=== PATIENT | female | born 1975 | race Hispanic/Latino ===

== ENCOUNTER 2017-12-02 10:58 | Emergency (ER) | payer MEDICAID, OTHER | END 2017-12-02 12:05 | disposition home or self-care (01) | LOC: EDH 10:58 | DX: H00.011 Hordeolum externum right upper eyelid (principal); Z98.51 Tubal ligation status; Z72.0 Tobacco use | CPT/HCPCS: 99281 ==

== ENCOUNTER 2018-02-25 18:22 | Emergency (ER) | payer MEDICAID, OTHER ==
[2018-02-25 20:22] LABS: BASOPHILS % (AUTO) 0.8 % (0.0-5.0); HEMATOCRIT 36.8 % (36-48); LYMPHOCYTES % (AUTO) 31.8 % (21.0-51.0); MEAN CORPUSCULAR HEMOGLOBIN 31.3 pg (27.0-33.0); MEAN CORPUSCULAR HGB CONC 35.2 g/dL (32.0-36.0); MEAN CORPUSCULAR VOLUME 88.9 fL (79-99); MONOCYTES % (AUTO) 7.3 % (3.0-13.0); NEUTROPHILS % (AUTO) 56.1 % (40.0-77.0); NUCLEATED RED BLOOD CELLS 0.1 % (0.0-0.19); PLATELET COUNT (AUTO) 239 K/uL (130-400); RED BLOOD CELL COUNT(AUTO) 4.13 MIL/uL (4.00-5.50); RED CELL DISTRIBUTION WIDTH 12.7 % (11.0-15.5); WHITE BLOOD COUNT (AUTO) 6.6 K/uL (4.8-10.8)
[2018-02-25 20:23] LABS: APPEARANCE,URINE Clear (CLEAR); BILIRUBIN,URINE Negative (NEGATIVE); COLOR,URINE Yellow (YELLOW); GLUCOSE, URINE (UA) Negative (NEGATIVE); KETONES,URINE Negative (NEGATIVE); LEUKOCYTE ESTERASE ,URINE Negative (NEGATIVE); NITRATE,URINE Negative (NEGATIVE); OCCULT BLOOD,URINE Negative (NEGATIVE); PH,URINE 5.5 (5.0-8.0); PROTEIN,URINE Negative (NEGATIVE)
[2018-02-25 20:24] LABS: HCG,QUAL RESULT NEGATIVE (NEGATIVE)
[2018-02-25 20:32] LABS: CREATININE 0.8 mg/dL (0.5-1.5); POTASSIUM 4.1 mmol/L (3.5-5.1)
[2018-02-25 20:36] LABS: ALBUMIN 3.7 g/dL (3.5-5.0); BILIRUBIN,DIRECT 0.1 mg/dL (0.0-0.3); BILIRUBIN,TOTAL 0.2 mg/dL (0.2-1.0); TOTAL PROTEIN, SERUM 7.4 g/dL (6.0-8.3)
[2018-02-25] MEDS ORDERED: HYOSCYAMINE SULFATE 0.125 MG TAB.SUBL SL ONE (21:44)
== END 2018-02-25 22:06 | disposition home or self-care (01) ==
LOC: EDH 18:22
DX: R10.2 Pelvic and perineal pain (principal); Z72.0 Tobacco use
CPT/HCPCS: 36415; 76856; 80048; 80076; 81003; 81025; 83690; 85025

== ENCOUNTER 2018-10-01 19:17 | Emergency (ER) | payer MEDICAID | END 2018-10-01 20:51 | disposition home or self-care (01) | LOC: EDH 19:17 | DX: J06.9 Acute upper respiratory infection, unspecified (principal); Z98.51 Tubal ligation status; Z72.0 Tobacco use ==

== ENCOUNTER 2019-10-22 12:37 | Emergency (ER) | payer MEDICAID ==
[2019-10-22 13:02] LABS: APPEARANCE,URINE Clear (CLEAR); BILIRUBIN,URINE Negative (NEGATIVE); COLOR,URINE Yellow (YELLOW); GLUCOSE, URINE (UA) Negative (NEGATIVE); KETONES,URINE Negative (NEGATIVE); LEUKOCYTE ESTERASE ,URINE Trace (NEGATIVE); NITRATE,URINE Negative (NEGATIVE); OCCULT BLOOD,URINE Negative (NEGATIVE); PH,URINE 6.5 (5.0-8.0); PROTEIN,URINE Negative (NEGATIVE)
[2019-10-22] MEDS ORDERED: SODIUM CHLORIDE 0.9% 1000ML 1,000 ML IV ONE (13:02)
[2019-10-22 13:05] LABS: BASOPHILS % (AUTO) 0.9 % (0.0-5.0); EOSINOPHILS % (AUTO) 4.2 % (0.0-8.0); HEMATOCRIT 40.1 % (36-48); LYMPHOCYTES % (AUTO) 23.9 % (21.0-51.0); MEAN CORPUSCULAR HEMOGLOBIN 31.2 pg (27.0-33.0); MEAN CORPUSCULAR HGB CONC 34.4 g/dL (32.0-36.0); MEAN CORPUSCULAR VOLUME 90.5 fL (79-99); MONOCYTES % (AUTO) 6.6 % (3.0-13.0); NEUTROPHILS % (AUTO) 64.4 % (40.0-77.0); NUCLEATED RED BLOOD CELLS 0.1 % (0.0-0.19); PLATELET COUNT (AUTO) 218 K/uL (130-400); RED BLOOD CELL COUNT(AUTO) 4.43 MIL/uL (4.00-5.50); RED CELL DISTRIBUTION WIDTH 13.1 % (11.0-15.5); WHITE BLOOD COUNT (AUTO) 7.2 K/uL (4.8-10.8)
[2019-10-22 13:07] LABS: HCG,QUAL RESULT NEGATIVE (NEGATIVE)
[2019-10-22] MEDS ORDERED: IOHEXOL-350 75 ML VIAL IV ONE (13:13)
[2019-10-22] MEDS ORDERED: KETOROLAC TROMETHAMINE 30MG/ML ONE (13:25)
[2019-10-22 13:30] LABS: CREATININE 0.7 mg/dL (0.5-1.5)
[2019-10-22 13:33] LABS: BILIRUBIN,TOTAL 0.5 mg/dL (0.2-1.0); TOTAL PROTEIN, SERUM 7.5 g/dL (6.0-8.3)
[2019-10-22 14:00] LABS: BACTERIA,URINE Few /HPF (None Seen); RBC,URINE 0-1 /HPF (0-1); WBC,URINE 0-1 /HPF (0-1)
== END 2019-10-22 16:15 | disposition home or self-care (01) ==
LOC: EDH 12:37
DX: R10.32 Left lower quadrant pain (principal); Z98.51 Tubal ligation status; Z72.0 Tobacco use
CPT/HCPCS: 36415; 74177; 76856; 80053; 81001; 81025; 85025; 96374; 99285; J1885; J7030; Q9967

== ENCOUNTER 2019-10-25 13:05 | Emergency (ER) | payer MEDICAID | END 2019-10-25 13:30 | disposition home or self-care (01) | LOC: EDH 13:05 | DX: S39.011A Strain of muscle, fascia and tendon of abdomen, initial encounter (principal); R10.32 Left lower quadrant pain; Z98.51 Tubal ligation status; Z72.0 Tobacco use; X58.XXXA Exposure to other specified factors, initial encounter; Y93.89 Activity, other specified; Y92.89 Other specified places as the place of occurrence of the external cause; Y99.8 Other external cause status ==

== ENCOUNTER 2022-07-27 10:31 | Emergency (ER) | payer MEDICAID ==
[~2022-07-27] VITALS: Ht 157.5 cm; Wt 81.6 kg
[2022-07-27] MEDS ORDERED: ACETAMINOPHEN 500 MG TABLET PO SCH (10:52)
[2022-07-27 11:52] VITALS: BP 104/68
[2022-07-27] MEDS ORDERED: ACET-66 PO (11:59)
== END 2022-07-27 12:13 | disposition home or self-care (01) ==
LOC: EDH 10:31
DX: U07.1 COVID-19 (principal)
CPT/HCPCS: 99283; 87635; 87880; 87804 ×2; 81025; C9803

== ENCOUNTER 2022-10-29 21:18 | Emergency (ER) | payer MEDICAID ==
[~2022-10-29] VITALS: Ht 157.5 cm; Wt 79.4 kg
[~2022-10-29 21:18] MED LIST: ACET-66 PO
[2022-10-30 01:14] LABS: BASOPHILS % (AUTO) 0.7 % (0.0-5.0); EOSINOPHILS % (AUTO) 3.7 % (0.0-8.0); LYMPHOCYTES % (AUTO) 25.7 % (21.0-51.0); MEAN CORPUSCULAR HEMOGLOBIN 27.9 pg (27.0-33.0); MEAN CORPUSCULAR HGB CONC 32.6 g/dL (32.0-36.0); MEAN CORPUSCULAR VOLUME 85.7 fL (79-99); MONOCYTES % (AUTO) 7.4 % (3.0-13.0); NEUTROPHILS % (AUTO) 62.4 % (40.0-77.0); PLATELET COUNT (AUTO) 267 K/uL (130-400); RED BLOOD CELL COUNT(AUTO) 5.02 MIL/uL (4.00-5.50); RED CELL DISTRIBUTION WIDTH 19.1 % (11.0-15.5); WHITE BLOOD COUNT (AUTO) 6.8 K/uL (4.8-10.8)
[2022-10-30 01:15] LABS: BILIRUBIN,URINE NEGATIVE (NEGATIVE); COLOR,URINE LIGHT-YELLOW (YELLOW); GLUCOSE, URINE (UA) NEGATIVE (NEGATIVE); KETONES,URINE NEGATIVE (NEGATIVE); LEUKOCYTE ESTERASE ,URINE 25 Leu/uL (NEGATIVE); NITRATE,URINE NEGATIVE (NEGATIVE); OCCULT BLOOD,URINE NEGATIVE (NEGATIVE); PH,URINE 5.5 (5.0-8.0); PROTEIN,URINE NEGATIVE (NEGATIVE); UROBILINOGEN,URINE 0.2 mg/dL (0.2-1.0)
[2022-10-30 01:22] LABS: CREATININE 0.6 mg/dL (0.5-1.5); POTASSIUM 4.2 mmol/L (3.5-5.1)
[2022-10-30 01:27] LABS: ALBUMIN 4.3 g/dL (3.5-5.0); TOTAL PROTEIN, SERUM 8.5 g/dL (6.0-8.3)
[2022-10-30 01:28] LABS: APPEARANCE,URINE SLIGHTLY CLOUDY (CLEAR)
[2022-10-30 01:30] LABS: MUCUS,URINE RARE LPF (None Seen); SQUAMOUS EPITHELIAL CELL,UR MANY /HPF (0-2)
[2022-10-30 01:41] LABS: BACTERIA,URINE Few /HPF (None Seen)
[2022-10-30] MEDS ORDERED: MECL-262 PO (02:27)
[2022-10-30 02:37] VITALS: BP 139/75
== END 2022-10-30 02:45 | disposition home or self-care (01) ==
LOC: EDH 21:18
DX: R42 Dizziness and giddiness (principal); E03.9 Hypothyroidism, unspecified
CPT/HCPCS: 36415; 70450; 80053; 81001; 85025

== ENCOUNTER 2023-04-03 07:37 | Emergency (ER) | payer MEDICAID ==
[~2023-04-03] VITALS: Ht 157.5 cm; Wt 78.5 kg
[~2023-04-03 07:37] MED LIST changes: +MECL-262 PO
[2023-04-03 07:43] VITALS: BP 149/93
[2023-04-03] MEDS ORDERED: NAPR-1180 PO (08:02)
== END 2023-04-03 08:07 | disposition home or self-care (01) ==
LOC: EDH 07:37
DX: S80.02XA Contusion of left knee, initial encounter (principal); M76.42 Tibial collateral bursitis [Pellegrini-Stieda], left leg; W18.39XA Other fall on same level, initial encounter; Y93.89 Activity, other specified; Y92.89 Other specified places as the place of occurrence of the external cause; Y99.8 Other external cause status
CPT/HCPCS: 99282

== ENCOUNTER 2023-11-11 10:55 | Emergency (ER) | payer MEDICAID ==
[~2023-11-11] VITALS: Ht 160 cm; Wt 81.6 kg
[~2023-11-11 10:55] MED LIST changes: +NAPR-1180 PO
[2023-11-11 11:30] LABS: SARS-CoV-2, RNA, NAAT NEGATIVE SARS CoV-2 (NEGATIVE)
[2023-11-11 11:37] LABS: INFLUENZA TYPE A Negative For Type A (NEGATIVE)
[2023-11-11 12:28] LABS: INFLUENZA TYPE B Positive For Type B (NEGATIVE)
[2023-11-11 13:04] VITALS: BP 136/78; PULSE 78; RESP 16; O2SAT 98
[2023-11-11] MEDS ORDERED: OSEL75 PO (13:04)
== END 2023-11-11 13:08 | disposition home or self-care (01) ==
LOC: EDH 10:55
DX: J10.1 Influenza due to other identified influenza virus with other respiratory manifestations (principal); Z20.822 Contact with and (suspected) exposure to COVID-19
CPT/HCPCS: 99283; 87635; 87804 ×2; C9803

== ENCOUNTER 2024-05-26 19:56 | Emergency (ER) | payer MEDICAID, OTHER ==
[~2024-05-26] VITALS: Ht 157.5 cm; Wt 81.6 kg
[~2024-05-26 19:56] MED LIST changes: +OSEL75 PO
[2024-05-26] MEDS: ACETAMINOPHEN 500 MG TABLET PO ONE (20:20)
[2024-05-26 20:33] LABS: RAPID GROUP A STREP negative (NEGATIVE)
[2024-05-26 20:46] LABS: COVID19 (SARS ANTIGEN RAPID) PRESUMPTIVE NEGATIVE (NEGATIVE); INFLUENZA TYPE A Negative For Type A (NEGATIVE); INFLUENZA TYPE B Negative For Type B (NEGATIVE)
[2024-05-26 20:58] VITALS: TEMP 99.4
[2024-05-26] MEDS ORDERED: LORA10TA7 PO (21:08)
[2024-05-26] MEDS ORDERED: AMOX1TAB16 PO (21:08)
[2024-05-26] MEDS ORDERED: FLUT16H NASAL (21:08)
[2024-05-26 21:19] VITALS: BP 130/80; PULSE 100; RESP 19; O2SAT 96
== END 2024-05-26 21:25 | disposition home or self-care (01) ==
LOC: EDH 19:56
DX: J32.9 Chronic sinusitis, unspecified (principal); M79.18 Myalgia, other site; F17.200 Nicotine dependence, unspecified, uncomplicated; Z20.822 Contact with and (suspected) exposure to COVID-19; Z79.899 Other long term (current) drug therapy; Z98.890 Other specified postprocedural states
CPT/HCPCS: 87426; 87804; 87880

== ENCOUNTER 2025-09-17 13:20 | Emergency (ER) | payer BC ==
[~2025-09-17] VITALS: Ht 157.5 cm; Wt 83.9 kg
[~2025-09-17 13:20] MED LIST changes: +AMOX1TAB16 PO; +FLUT16H NASAL; +LORA10TA7 PO
--- NOTE | 2025-09-17 14:55 | HMCIMG ---
EXAM: CR Chest, 2 View. CLINICAL HISTORY: cough COMPARISON: None provided. FINDINGS: LUNGS: The lungs show no infiltrate or other acute finding. PLEURAL SPACES: No evidence of pleural effusion or pneumothorax. MEDIASTINUM: The cardiomediastinal silhouette is within normal limits. BONES: No aggressive appearing osseous lesion seen. IMPRESSION: No acute cardiopulmonary pathology is evident. /[place]
--- NOTE | 2025-09-17 15:23 | NUR ---
PATIENT CARE ASSUMED AT THIS TIME.
[2025-09-17 16:54] LABS: COVID19 (SARS ANTIGEN RAPID) PRESUMPTIVE NEGATIVE (NEGATIVE); INFLUENZA TYPE A Negative For Type A (NEGATIVE); INFLUENZA TYPE B Negative For Type B (NEGATIVE)
[2025-09-17] MEDS ORDERED: AZIT250T9 PO (17:33)
--- NOTE | 2025-09-17 17:33 | ERN ---
ED Note History of Present Illness Stated Complaint: COUGH Chief Complaint: Cough Time Seen by MD: 13:39 Dictation: 50-year-old female presenting to the emergency department with two weeks of on and off cough cold congestion and body aches. No chest pain no shortness a jennie ath Allergies: Coded Allergies: No Known Allergies (Unverified Allergy, Unknown, 07/27/22) Home Meds Active Scripts Loratadine (Loratadine) 10 Mg Tablet, 10 MG PO DAILY for 30 Days, #30 TAB Prov:FLORENTIN DAILEY MD 05/26/24 Fluticasone Propionate (Flonase Nasal [place]) 50 Mcg/Actuation [place], 50 MCG NASAL BID for 14 Days, #30 SPRAY Prov:FLORENTIN DAILEY MD 05/26/24 Amoxicillin/Potassium Clav (Amox Tr-K Clv 875-125 mg Tab) 875 Mg-125 Mg Tablet, 1 EACH PO BID for 7 Days, #14 TAB Prov:FLORENTIN DAILEY MD 05/26/24 Oseltamivir Phosphate (Tamiflu) 75 Mg Cap, 75 MG PO BID, #10 CAP 0 Refills Prov:WALDO STAFFORD SPRING ASSEMBLER 11/11/23 Naproxen (Naprosyn) 500 Mg Tablet, 500 MG PO BIDPC for 10 Days, #20 TAB 0 Refills Prov:BROWN MOY MD 04/03/23 Meclizine HCl (Antivert) 25 Mg Tab.chew, 25 MG PO TIDP PRN for VERTIGO, #20 TAB.CHEW Prov:GABRIELA AKBAR MD 10/30/22 Acetaminophen (Tylenol) 500 Mg Tab, 500 MG PO Q6HPRN, #30 TAB Prov:FLORENTIN DAILEY MD 07/27/22 Past Medical History Past Medical History: No Pertinent History Surgical History: BTL Surgical History Other: ECTOPIC Family History: HTN Social History: Smokers, Negative, Lives with family Review of System Dictation Constitutional: Per HPI Eyes: Negative for injury, pain,redness, and discharge ENT: Negative for injury,pain or swelling Cardiovascular: Negative for chest pain, palpitations, and edema Respiratory: Per HPI Abdomen/GI: Negative for abdominal pain, nausea, vomiting, diarrhea, and c onstipation Back: Negative for injury and pain : Negative for injury, bleeding and discharge MS/Extremity: Negative for injury and deformity Skin: Negative for rash, and discoloration Neuro: Negative for headache, weakness, numbness, tingling, and seizure Psych: Negative for suicide ideation, homicidal ideation, and hallucinations Initial Vital Sign VS Vital Signs Date Time Temp Pulse Resp B/P (MAP) Pulse Ox O2 Delivery O2 Flow Rate FiO2 09/17/25 13:21 98.1 82 18 149/98 96 Room Air 09/17/25 15:23 0 21 Physical Exam Dictation General: awake, alert, NAD Head/Face: Normocephalic, atraumatic Eyes: PERRL, EOMI, vision at baseline ENT: oral cavity clear, TMs clear, no signs of infection Neck: Trachea midline, supple, no nuchal rigidity Cardiovascular: RRR, normal S1/S2, No MRGs, no JVD Respiratory: CTAB, no respiratory distress, No rales or wheezes Abdomen: Soft, non-tender, non-distended, normal bowel sounds, no guarding or r ebound. Skin: Warm, dry, normal turgor, no rash MS/Extremity: Pulses equal, no cyanosis, neurovascular intact, FROM Neuro: COAx4, GCS 15, strength 5/5, CN 2-12 intact, normal cerebellar exam, normal gait, Psych: Normal behavior, mood, and affect normal Results (Laboratory/Radiology) Laboratory/Radiology Laboratory Tests Test 09/17/25 16:31 Influenza Type A Antigen Negative For Type A Influenza Type B Antigen Negative For Type B SARS-CoV-2 Antigen (Rapid) PRESUMPTIVE NEGATIVE Labs Reviewed?: Yes ED Course ED Course Orders Procedure Category Date Status Time Influenza Type A & B, LAB 09/17/25 Complete Rapid 13:39 Covid19 (Sars Antigen LAB 09/17/25 Complete Rapid) 13:39 Chest 2vws RAD 09/17/25 Resulted 13:39 Ceftriaxone 1g Vial PHA 09/17/25 Complete (Rocephine 1g Inj) 13:39 Dexamethasone 10mg/Ml PHA 09/17/25 Complete 1ml Vial (Dexameth 13:39 Current Medications Medications (Trade) Dose Ordered Sig/Trent Route PRN Reason Start Time Stop Time Status Last Admin Dose Admin Ceftriaxone Sodium (ROCEphine 1G INJ) 1 gm ONCE STAT IM 09/17/25 13:39 09/17/25 13:41 DC 09/17/25 15:41 Dexamethasone Sodium Phosphate (dexaMETHasone 10MG/ML 1ML VIAL) 10 mg Q12H STAT IM 09/17/25 13:39 09/17/25 13:41 DC 09/17/25 15:41 Vital Signs Date Time Temp Pulse Resp B/P (MAP) Pulse Ox O2 Delivery O2 Flow Rate FiO2 09/17/25 15:23 98.4 78 17 143/94 97 Room Air* 0 21 09/17/25 13:21 98.1 82 18 149/98 96 Room Air Medical Decision Making MDM MDM: Differential diagnosis: Rationale: Tests considered and ordered secondary to shared decision making include: Previous outside records reviewed: Old ER visits. Risk of complication and/or morbidity or mortality of patient management: None Medications-Per medication reconciliation Need for hospitalization: Patient does not meet criteria for hospitalization. Need for emergency major/minor surgery: No There are no social concerns with this patient. Prescription drug management Prescriptions will include symptomatic care Patient's prior external medical records from other ER visits were reviewed by me as indicated. Prior testing and results from previous visits were reviewed. Prior tests were taken into account with medical decision making and resource utilization, independent historian/historians were used to obtain complete medical history. I independently interpreted the test that were performed, results were reviewed by me and considered findings on radiology if ordered. Medical management and examination interpretation discussions were had by me with other qualified healthcare professionals as indicated for the patient's care. 50-year-old female with URI, stable exam clear chest x-ray we will treat for bronchitis. And atypicals. DX & DISP Disposition: Discharge Departure Impression: Primary Impression: Acute bronchitis Condition: Stable Scripts Azithromycin (Azithromycin) 250 Mg Tablet 250 MG PO AD for cough for 5 Days, #6 TAB Prov: MONICA DELUCA MD 09/17/25 Referrals: [facility] [employer]ICAL DESIGN ENGINEER (PCP) MONICA DELUCA MD Sep 17, 2025 17:33
[2025-09-17 17:35] VITALS: BP 132/67; PULSE 72; RESP 17; TEMP 98.4; O2SAT 96
== END 2025-09-17 17:36 | disposition home or self-care (01) ==
LOC: EDH 13:20
DX: J20.9 Acute bronchitis, unspecified (principal); F17.200 Nicotine dependence, unspecified, uncomplicated; Z79.899 Other long term (current) drug therapy; Z20.822 Contact with and (suspected) exposure to COVID-19
CPT/HCPCS: 99284; 71046; 87426; 87804 ×2; 96372 ×2; J1100; J0696